=== PATIENT | female | born 1945 | race Hispanic/Latino ===

== ENCOUNTER → 2017-10-22 | Outpatient (CLI) | payer MEDICARE, OTHER ==
[~2017-10-22] MED LIST: CELEBREX100 MG PO; CYCLOBENZAPRINE5 MG PO; GABAPENTIN300 MG PO; HYDROCHLOROTHIA25 MG PO; LEVAQUIN500 MG PO; LEXAPRO10 MG PO; LISINOPRIL10 MG PO; METOCLOPRAMIDE10 MG PO; METRONIDAZOLE500 MG PO; PANTOPRAZOLE SO40 MG PO; POTASSIUM CHLO10 ME1 PO; PROMETHAZINE HC25 M1 PO; TRAMADOL-ACETAMI1 EA PO; ULTRAM50 MG PO; VALTREX500 MG PO; lantus solostar SQ; novolog flexpen SQ
--- NOTE | 2017-10-28 08:52 | Diagnostic Imaging Report ---
#[id number] - MGSCRBIL #BILATERAL DIGITAL SCREENING MAMMOGRAM WITH CAD: 10/22/2017 Comparison is made to exam dated: 11/07/2016 mammogram - [facility]. Current study contains 5 films. There are scattered fibroglandular elements in both breasts. Current study was also evaluated with a Computer Aided Detection (CAD) system. There are benign calcifications in both breasts. There also are post operative findings in the right breast with multiple clips, scarring and retraction from a prior lumpectomy. No significant masses, calcifications, or other findings are seen in either breast. There has been no significant interval change. IMPRESSION: BENIGN There is no mammographic evidence of malignancy. A 1 year screening mammogram is recommended. The patient will be notified by letter of the results. Laurent Urrutia Jr., D.O. cw/:10/27/2017 08:45:27 Work Adjustment Instructor: Sigrid ALVAREZ)(Bernard), [facility] letter sent: Compared to Prior B9 Mammogram BI-RADS: 2 Benign
== END ==
LOC: MAMMO 08:58
PROVIDERS: ATTEND Student in an Organized Health Care Education/Training Program
DX: Z12.31 Encounter for screening mammogram for malignant neoplasm of breast (principal)
CPT/HCPCS: 77067

== ENCOUNTER 2018-07-25 10:01 | Emergency (ER) | payer MEDICARE, OTHER ==
[~2018-07-25] VITALS: Ht 160 cm; Wt 108.9 kg
[~2018-07-25 10:01] MED LIST changes: +ALPRAZOLAM0.5 MG PO; +CATAPRES0.2 MG PO; +HUMALOG100 UNIT/1 SQ; +LACTULOSE20 GM/30 M PO; +TYLENOL # 31 EA PO; +ZOFRAN ODT4 MG PO
[2018-07-25] MEDS ORDERED: FAMOTIDINE 20 MG/2 ML VIAL IV STA (10:46)
[2018-07-25] MEDS ORDERED: ONDANSETRON HCL INJ 2 MG/ML VIAL IV STA (10:46)
[2018-07-25] MEDS ORDERED: KETOROLAC TROMETHAMINE 30 MG/ML VIAL IV STA (10:46)
--- NOTE | 2018-07-25 11:47 | Diagnostic Imaging Report ---
EXAMINATION: PA and lateral views of the chest. COMPARISON: None CLINICAL HISTORY: Chest pain DISCUSSION: Lines/tubes: None. Lungs: The lungs are well inflated and clear. There is no evidence of pneumonia or pulmonary edema. Pleura: There is no pleural effusion or pneumothorax. Heart and mediastinum: Cardiomediastinal silhouette is unremarkable. Pulmonary vasculature is normal. Tortuous aorta. Bones and soft tissues: No acute bony abnormalities. Degenerative changes in the thoracic spine. Metallic clips project over the right hemithorax. IMPRESSION: No acute cardiopulmonary abnormalities. Signed by: Dr. Rubin Baugh M.D. on 07/25/2018 11:44 AM
--- NOTE | 2018-07-25 12:03 | Diagnostic Imaging Report ---
EXAMINATION: CT of the abdomen and pelvis without contrast. TECHNIQUE: Spiral CT images of the abdomen and pelvis were performed from the lung bases to the lesser trochanters. No intravenous contrast was given per renal stone protocol. Coronal and sagittal reformatted images were obtained. COMPARISON: CT abdomen and pelvis with contrast 02/01/2020 CLINICAL HISTORY:Abdominal pain DISCUSSION: ABSENCE OF INTRAVENOUS CONTRAST DECREASES SENSITIVITY FOR DETECTION OF FOCAL LESIONS AND VASCULAR PATHOLOGY. ABDOMEN/PELVIS: LOWER THORAX: 3-4 mm perifissural nodule in the left major fissure (series 2, image 1). Lung bases are otherwise clear. Atherosclerotic calcification of the coronary arteries HEPATOBILIARY: Diffuse hepatic steatosis. No focal lesions. No intra or extrahepatic biliary ductal dilation. GALLBLADDER: No radio-opaque stones or sludge. No wall thickening. SPLEEN: No splenomegaly. PANCREAS: No focal masses or ductal dilatation. ADRENALS: Stable 2.5 x 2.2 cm hypodense lesion in the left adrenal gland, with a measured density of less than 10 HU on this noncontrast exam. Right adrenal gland is unremarkable. KIDNEYS/URETERS: No renal or ureteral calculi, hydronephrosis or obstruction. Metallic clips and contour abnormality in the inferior portion of the right kidney, likely from partial nephrectomy. PELVIC ORGANS/BLADDER: Uterus is nonvisualized. No adnexal masses. PERITONEUM/RETROPERITONEUM: No free air or fluid. LYMPH NODES: No intra-abdominal,retroperitoneal, pelvic or inguinal lymphadenopathy. VESSELS: Atherosclerotic calcification of the abdominal aorta and iliac vessels. GI TRACT: No bowel dilation or evidence of obstruction. Sigmoid colon diverticulosis, without diverticulitis. BONES AND SOFT TISSUES: No aggressive lytic lesions. Degenerative disc changes predominantly at L5-S1. Soft tissues are grossly unremarkable. IMPRESSION: 1. Exam limited by lack of intravenous contrast. No bowel dilation or evidence of obstruction. 2. No renal, ureteral or bladder calculi. 3. Stable 2.5 cm benign, lipid rich left adrenal adenoma. No further diagnostic or follow-up imaging is indicated. 4. Diffuse hepatic stenosis. Signed by: Dr. Rubin Baugh M.D. on 07/25/2018 11:59 AM
[2018-08-02] MEDS ORDERED: LOSARTAN POTAS100 MG PO (15:44)
[2018-08-02] MEDS ORDERED: CYMBALTA30 MG PO (15:44)
[2018-08-02] MEDS ORDERED: JANUVIA100 MG PO (15:45)
[2018-08-02] MEDS ORDERED: LANTUS 3ML100 UNITS/ SC (15:45)
[2018-08-02] MEDS ORDERED: DETROL LA4 MG PO (15:45)
[2018-08-02] MEDS ORDERED: SYMBICORT 80-10.2 GM INH (15:45)
[2018-08-02] MEDS ORDERED: HYDROXYZINE HCL25 MG PO (15:45)
[2018-08-02] MEDS ORDERED: OMEPRAZOLE40 MG PO (15:46)
[2018-08-02] MEDS ORDERED: HUMALOG100 UNIT/3 SC (15:46)
[2018-08-02] MEDS ORDERED: LEXAPRO10 MG PO (15:46)
== END 2018-07-25 14:00 | disposition home or self-care (01) ==
LOC: FSED 10:01
DX: R10.84 Generalized abdominal pain (principal); R11.0 Nausea; I10 Essential (primary) hypertension; E11.9 Type 2 diabetes mellitus without complications; Z85.3 Personal history of malignant neoplasm of breast; F17.210 Nicotine dependence, cigarettes, uncomplicated
CPT/HCPCS: 71046; 74176; 80048; 81003; 84484; 85025; 93005; 99284; J1885; J2405

== ENCOUNTER 2018-07-28 09:36 | Emergency (ER) | payer MEDICARE ==
[~2018-07-28] VITALS: Ht 160 cm; Wt 108.9 kg
[2018-07-28] MEDS ORDERED: DULCOLAX STOOL100 MG PO (10:57)
[2018-08-02] MEDS ORDERED: CYMBALTA30 MG PO (15:44)
[2018-08-02] MEDS ORDERED: LOSARTAN POTAS100 MG PO (15:44)
[2018-08-02] MEDS ORDERED: LANTUS 3ML100 UNITS/ SC (15:45)
[2018-08-02] MEDS ORDERED: JANUVIA100 MG PO (15:45)
[2018-08-02] MEDS ORDERED: SYMBICORT 80-10.2 GM INH (15:45)
[2018-08-02] MEDS ORDERED: DETROL LA4 MG PO (15:45)
[2018-08-02] MEDS ORDERED: HYDROXYZINE HCL25 MG PO (15:45)
[2018-08-02] MEDS ORDERED: LEXAPRO10 MG PO (15:46)
[2018-08-02] MEDS ORDERED: HUMALOG100 UNIT/3 SC (15:46)
[2018-08-02] MEDS ORDERED: OMEPRAZOLE40 MG PO (15:46)
== END 2018-07-28 10:43 | disposition home or self-care (01) ==
LOC: FSED 09:36
DX: R10.84 Generalized abdominal pain (principal); I10 Essential (primary) hypertension; E11.9 Type 2 diabetes mellitus without complications; E78.5 Hyperlipidemia, unspecified; Z85.3 Personal history of malignant neoplasm of breast
CPT/HCPCS: 99282

== ENCOUNTER → 2018-08-11 | Day surgery (SDC) | payer MEDICARE, OTHER ==
[2018-08-02 16:09] LABS: BASOPHILS # (AUTO) 0.1 (0.0-0.1); BASOPHILS % 0.6 % (0.0-1.0); EOSINOPHILS # (AUTO) 0.3 (0.0-0.4); EOSINOPHILS % 2.7 % (0.0-6.0); HEMATOCRIT 41.9 % (34.2-44.1); LYMPHOCYTES # (AUTO) 1.8 (1.0-3.2); LYMPHOCYTES % 18.9 % (18.0-39.1); MEAN CORPUSCULAR HEMOGLOBIN 25.6 pg (28-32); MEAN CORPUSCULAR VOLUME 82.6 fL (81-99); MONOCYTES # (AUTO) 0.8 (0.2-0.8); MONOCYTES % 8.9 % (4.4-11.3); NEUTROPHILS # (AUTO) 6.4 (2.1-6.9); NEUTROPHILS % 68.6 % (38.7-80.0); PLATELET COUNT 199 x10e3/uL (140-360); RED BLOOD COUNT 5.07 x10e6/uL (3.6-5.1); RED CELL DISTRIBUTION WIDTH 15.2 % (11.7-14.4)
[~2018-08-11] MED LIST changes: +B/P MEDICATION PO; +CYMBALTA30 MG PO; +DETROL LA4 MG PO; +DULCOLAX STOOL100 MG PO; +FENTANYL CITRATE/PF 100MCG/2 ML INJ ONE; +HUMALOG100 UNIT/3 SC; +HYDROXYZINE HCL25 MG PO; +JANUVIA100 MG PO; +LANTUS 3ML100 UNITS/ SC; +LOSARTAN POTAS100 MG PO; +MIDAZOLAM HCL 2 MG/2 ML VIAL ONE; +OMEPRAZOLE40 MG PO; +PROPOFOL IV EMULSION 10 MG/ML 50 ML VIAL ONE; +SYMBICORT 80-10.2 GM INH
[2018-08-11 09:15] VITALS: BP 149/90
--- NOTE | 2018-08-11 13:29 | Operative Report ---
DATE OF PROCEDURE: August 11, 2018 REFERRING PHYSICIAN: Wilver Subramanian MD PROCEDURE PERFORMED: Esophagogastroduodenoscopy with biopsies and esophageal dilatation. INDICATIONS FOR PROCEDURE: Dysphagia, nausea. MEDICATION: Patient was done under MAC. Please see anesthesiologist's note. PROCEDURE: With the patient in the left lateral decubitus position, the flexible fiberoptic Olympus gastroscope was introduced into the esophagus under direct visualization without any difficulty. There was some patchy erythema noted in the distal esophagus. A minute tongue of velvety red mucosa was noted to extend proximally from the GE junction. That was biopsied to rule out Roach's. There was a mild stricture noted at the GE junction that was dilated to size 52-Kyr[place] Morales. The scope was then advanced with ease into the stomach, traversing a small sliding hiatal hernia. Mucosa overlying the antrum and the body revealed some patchy erythema and mild to moderate edema, and biopsies were obtained and sent to stain for H. pylori. The pylorus was of normal contour and shape. It was intubated with ease, and the scope was advanced all the way to the 2nd portion of the duodenum. The scope was then withdrawn slowly. Mucosa overlying the proximal 2nd portion appeared to be within normal limits. A minute nodule was noted in the duodenal bulb along the posterior wall that was biopsied. The scope was then withdrawn back into the stomach and retroflexed, and the mucosa overlying the fundus and the cardia appeared to be within normal limits. The scope was then straightened out. It was subsequently withdrawn. Patient tolerated the procedure well. IMPRESSION 1. Distal esophagitis, mild. 2. Rule out Roach's esophagus. 3. Mild stricture at gastroesophageal junction dilated to size 52-Kyr[place] Morales. 4. Small sliding hiatal hernia. 5. Gastritis, biopsied. Biopsies sent to stain for H. pylori. 6. Duodenal bulb nodule, biopsied. PLAN: Follow up histology. Increase omeprazole to 40 mg 1 p.o. a.c. b.i.d. Job#: [id number] cc:WILVER SUBRAMANIAN MD
== END | disposition home or self-care (01) ==
LOC: OR 05:33
PROVIDERS: ATTEND Internal Medicine Gastroenterology
DX: K22.2 Esophageal obstruction (principal); K29.50 Unspecified chronic gastritis without bleeding; K44.9 Diaphragmatic hernia without obstruction or gangrene; K21.0 Gastro-esophageal reflux disease with esophagitis; K58.9 Irritable bowel syndrome, unspecified; K59.00 Constipation, unspecified; J44.9 Chronic obstructive pulmonary disease, unspecified; G47.33 Obstructive sleep apnea (adult) (pediatric); I10 Essential (primary) hypertension; E11.9 Type 2 diabetes mellitus without complications; K76.0 Fatty (change of) liver, not elsewhere classified; E66.01 Morbid (severe) obesity due to excess calories; M19.90 Unspecified osteoarthritis, unspecified site; F41.9 Anxiety disorder, unspecified; F32.9 Major depressive disorder, single episode, unspecified; F17.210 Nicotine dependence, cigarettes, uncomplicated; Z01.810 Encounter for preprocedural cardiovascular examination; Z01.812 Encounter for preprocedural laboratory examination; Z79.4 Long term (current) use of insulin; Z68.41 Body mass index [BMI] 40.0-44.9, adult; Z85.3 Personal history of malignant neoplasm of breast
CPT/HCPCS: 36415 ×2; 43239; 43450; 82948; 85025; 93005; J2250; J2704

== ENCOUNTER → 2018-09-22 | Outpatient (CLI) | payer MEDICARE, OTHER ==
[~2018-09-22] MED LIST changes: -FENTANYL CITRATE/PF 100MCG/2 ML INJ ONE; +GADOBENATE DIMEGLUMINE 1 ML IV ONE; -MIDAZOLAM HCL 2 MG/2 ML VIAL ONE; -PROPOFOL IV EMULSION 10 MG/ML 50 ML VIAL ONE
[2018-09-22 10:57] LABS: CREATININE, SERUM 0.97 mg/dL (0.57-1.11)
--- NOTE | 2018-09-22 12:30 | Diagnostic Imaging Report ---
MRI BRAIN WOW HISTORY: Vertigo, diplopia COMPARISON: MRI of the brain 02/01/2018 TECHNIQUE: Multiplanar, multisequence MRI of the brain (including diffusion-weighted imaging) was performed before and after the administration of intravenous, gadolinium based contrast. 20 mL of MultiHance were administered. Motion artifacts obscure some details. DISCUSSION: Scalp/bone marrow: Unremarkable. Brain sulci: Appropriate for patient's age. Ventricles: Normal in size and configuration. No hydrocephalus. Extra-axial spaces: No masses or fluid collections. Parenchyma: Scattered T2/FLAIR hyperintense foci throughout the supratentorial white matter are likely chronic microvascular ischemic changes. Otherwise, no mass, hemorrhage, or acute vascular insults. No abnormal parenchymal, leptomeningeal, or dural enhancement is seen. Vessels: Normal flow voids in major arteries and veins. Sellar/Suprasellar region: No abnormalities. Craniocervical junction: No abnormalities. Incidental findings: None. IMPRESSION: 1. No acute intracranial abnormalities. 2. Moderate supratentorial chronic microvascular ischemic change. Signed by: Dr. Delmar Carroll M.D. on 09/22/2018 12:26 PM
== END ==
LOC: MRI 10:03
PROVIDERS: ATTEND Otolaryngology
DX: R42 Dizziness and giddiness (principal); H53.2 Diplopia
CPT/HCPCS: 36415; 70553; 82565; 84520; A9577

== ENCOUNTER 2018-10-18 13:06 | Emergency (ER) | payer OTHER, MEDICARE ==
[~2018-10-18] VITALS: Ht 160 cm; Wt 108.9 kg
[~2018-10-18 13:06] MED LIST changes: -GADOBENATE DIMEGLUMINE 1 ML IV ONE
[2018-10-18] MEDS ORDERED: CRESTOR10 MG (13:38)
[2018-10-18] MEDS ORDERED: BENTYL10 MG/1 ML PO (13:38)
[2018-10-18] MEDS ORDERED: LOSARTAN POTASS25 MG (13:38)
[2018-10-18] MEDS ORDERED: JANUVIA50 MG (13:38)
[2018-10-18] MEDS ORDERED: HUMALOG100 UNIT/1 SQ (13:38)
--- NOTE | 2018-10-18 13:59 | Diagnostic Imaging Report ---
Radiographs of the right elbow - 3 views HISTORY: Fall. Pain. COMPARISON: 10/18/2018 FINDINGS: Bones: Nondisplaced intra-articular radial head fracture Osseous alignment is within normal limits. Joints: The joint spaces are well-maintained. Soft tissues: Soft tissue swelling and elbow joint effusion. IMPRESSION: Nondisplaced intra-articular radial head fracture with soft tissue swelling and elbow joint effusion Signed by: Dr. Ricky Kirby M.D. on 10/18/2018 1:56 PM
[2018-10-18 14:30] VITALS: BP 155/82
== END 2018-10-18 14:40 | disposition home or self-care (01) ==
LOC: FSED 13:06
DX: S52.125A Nondisplaced fracture of head of left radius, initial encounter for closed fracture (principal); W01.0XXA Fall on same level from slipping, tripping and stumbling without subsequent striking against object, initial encounter; Y92.008 Other place in unspecified non-institutional (private) residence as the place of occurrence of the external cause; I10 Essential (primary) hypertension; E11.9 Type 2 diabetes mellitus without complications; Z85.3 Personal history of malignant neoplasm of breast
CPT/HCPCS: 99284

== ENCOUNTER 2018-10-23 13:41 | Emergency (ER) | payer MEDICARE, OTHER ==
[~2018-10-23] VITALS: Ht 160 cm; Wt 108.9 kg
[~2018-10-23 13:41] MED LIST changes: +BENTYL10 MG/1 ML PO; +CRESTOR10 MG; +JANUVIA50 MG; +LOSARTAN POTASS25 MG
--- NOTE | 2018-10-26 11:09 | NUR ---
ATTEMPTED TO CALL SISTER OBIE MATT [phone] PHONE WAS BUSY 3 TIMES. UNABLE TO MOVE FORWARD. DUE TO HAVING A COMMUNICATION AND NOT AN ORDER UNABLE TO PROCEED AND NOT ABLE TO REACH FAMILY TO ENCOURAGE TO RETURN TO PCP FOR FOLLOW UP.
== END 2018-10-23 14:15 | disposition home or self-care (01) ==
LOC: FSED 13:41
DX: Z47.89 Encounter for other orthopedic aftercare (principal)
CPT/HCPCS: 99284

== ENCOUNTER 2019-01-12 14:45 | Observation (INO) | payer MEDICARE, OTHER ==
[~2019-01-12] VITALS: Ht 160 cm; Wt 111.2 kg
[2019-01-12] MEDS ORDERED: ASPIRIN 81 MG CHEW TAB PO STA (15:05)
[2019-01-12] MEDS ORDERED: ONDANSETRON HCL 4 MG ORAL DISINTEGRATING TAB PO STA (15:05)
[2019-01-12] MEDS ORDERED: MECLIZINE HCL 12.5 MG TAB PO ONE (15:15)
[2019-01-12] MEDS ORDERED: ONDANSETRON HCL INJ 2MG/ML 2ML 2 MG/ML VIAL IV STA (15:23)
[2019-01-12] MEDS ORDERED: MECLIZINE HCL 12.5 MG TAB ONE (15:31)
[2019-01-12] MEDS ORDERED: ASPIRIN 81 MG CHEW TAB ONE (15:31)
[2019-01-12] MEDS ORDERED: INSULIN REGULAR, HUMAN 100 UNIT/1 ML 3ML VIAL SQ STA (15:34)
--- NOTE | 2019-01-12 15:49 | Diagnostic Imaging Report ---
EXAMINATION: Head CT HISTORY: Dizziness, head pain COMPARISON: Brain MRI 09/22/2018 TECHNIQUE: Multidetector axial images were obtained without contrast from the foramen magnum to the vertex . The images were reconstructed using brain and bone algorithms. Thin section brain images were reformatted into coronal and sagittal planes. Image quality: Motion/streaking artifact limits the evaluation of the skull base and posterior cranial fossa. Dose modulation, iterative reconstruction, and/or weight based adjustment of the mA/kV was utilized to reduce the radiation dose to as low as reasonably achievable. FINDINGS: Parenchyma: 1. Persistent mild to moderate supratentorial white matter chronic microvascular ischemic changes. 2. No mass or hemorrhage. No CT evidence of acute territorial vascular insult. Extra-axial spaces:No abnormal density. No extra-axial fluid collections Brain volume: Normal for age. Ventricles: No hydrocephalus or displacement. Arteries: No density suggestive of thrombus. Dural sinuses: No abnormal density. Extra-axial spaces: No abnormal density. Foramen magnum: No mass, Chiari malformation, or basilar invagination. Sella: No obvious mass. Paranasal/mastoid sinuses: Imaged portions unremarkable. Skull/Scalp: No lytic or blastic lesions. No fractures. IMPRESSION: 1. No acute intracranial abnormalities. 2. Moderate chronic microvascular ischemic changes, unchanged compared to MRI of 09/22/2018. Signed by: Dr. Valentina Panchal M.D. on 01/12/2019 3:45 PM
[2019-01-12] MEDS ORDERED: DEXTROSE 50% SYRINGE 50 ML IV PRN (16:00)
[2019-01-12] MEDS: INSULIN REGULAR, HUMAN 100 UNIT/1 ML 3ML VIAL SQ SCH ×2 (16:02→21:50)
[2019-01-12] MEDS ORDERED: INSULIN REGULAR, HUMAN 100 UNIT/1 ML 3ML VIAL ONE (16:07)
[2019-01-12] MEDS ORDERED: CLONIDINE HCL 0.1 MG TAB PO STA (16:16)
--- NOTE | 2019-01-12 16:16 | Diagnostic Imaging Report ---
EXAM: CT Abdomen and Pelvis WITHOUT intravenous contrast INDICATION: Abdominal pain COMPARISON: None. TECHNIQUE: Abdomen and pelvis were scanned utilizing a multidetector helical scanner from the lung base to the pubic symphysis without administration of IV contrast. Coronal and sagittal reformations were obtained. Routine protocol was performed. Scan was performed when during portal venous phase. IV CONTRAST: None ORAL CONTRAST: None COMPLICATIONS: None RADIATION DOSE: Total DLP: 756.74 mGy*cm Dose modulation, iterative reconstruction, and/or weight based adjustment of the mA/kV was utilized to reduce the radiation dose to as low as reasonably achievable. FINDINGS: LOWER THORAX: Normal. HEPATOBILIARY: Diffuse hepatic steatosis. No focal liver lesions. No biliary ductal dilatation. SPLEEN: No splenomegaly. PANCREAS: No focal masses or ductal dilatation. ADRENALS: Stable 2.5 cm left adrenal adenoma. KIDNEYS/URETERS: Postoperative changes with surgical clips at the right kidney lower pole. No hydronephrosis or renal calculi. PELVIC ORGANS/BLADDER: Status post hysterectomy. Decompressed bladder. PERITONEUM / RETROPERITONEUM: No free air or fluid. LYMPH NODES: No lymphadenopathy. VESSELS: Scattered atherosclerotic calcifications of the abdominal aorta and major branches. GI TRACT: Colonic diverticulosis with no CT evidence of diverticulitis. No abnormal bowel wall thickening or bowel distention. Normal appendix. BONES AND SOFT TISSUES: No fracture or dislocation. Minimal degenerative changes of the visualized spine. No suspicious lytic or blastic lesions. IMPRESSION: No acute findings in the abdomen or pelvis. Stable left adrenal adenoma. Hepatic steatosis. Signed by: Lisandro Zepeda MD on 01/12/2019 4:13 PM
[2019-01-12] MEDS ORDERED: CLONIDINE HCL 0.1 MG TAB ONE (16:20)
[2019-01-12] MEDS ORDERED: AMLODIPINE BESYLATE 5 MG TAB PO STA (16:20)
[2019-01-12] MEDS ORDERED: SODIUM CHLORIDE FLUSH 10 ML SYR INJ PRN (16:45)
[2019-01-12] MEDS ORDERED: ASPIRIN 81 MG CHEW TAB PO ONE (16:45)
[2019-01-12] MEDS ORDERED: NITROGLYCERIN 0.4 MG SUBL SL PRN (16:45)
--- NOTE | 2019-01-12 16:45 | Diagnostic Imaging Report ---
EXAMINATION: CXR 2 VIEW - HOPD INDICATION: Shortness of breath COMPARISON: Chest radiograph of 07/25/2018 FINDINGS: TUBES and LINES: None. LUNGS: The lung volumes are normal. No focal consolidation or pulmonary edema. PLEURA: No pleural effusion or pneumothorax. HEART AND MEDIASTINUM: The cardiomediastinal silhouette is normal in size and contour. BONES AND SOFT TISSUES: No acute fracture or dislocation. UPPER ABDOMEN: No free air under the diaphragm. IMPRESSION: No focal pneumonia or pulmonary edema. Signed by: Lisandro Zepeda MD on 01/12/2019 4:41 PM
[2019-01-12] MEDS ORDERED: MAGNESIUM/ALUMINUM/SIMETHICONE 30 ML UDC PO STA (16:46)
[2019-01-12] MEDS ORDERED: HYDRALAZINE HCL 20 MG/ML VIAL IV STA (17:05)
--- NOTE | 2019-01-12 17:20 | NUR ---
patient arrived to unit via stretcher, alert and oriented and in no distress. call collins within reach and bed in lowest position.
[2019-01-12 17:34] VITALS: BP 156/91
[2019-01-12] MEDS: ONDANSETRON HCL INJ 2MG/ML 2ML 2 MG/ML VIAL IV PRN ×2 (18:17→21:50)
--- NOTE | 2019-01-12 18:55 | NUR ---
patient alert and oriented. call collins within reach and bed in lowest position. blood pressure reading is 192/100 with a pulse of 100, Roger notified, due to patient receiving hydralazine at 1730, per MD give medication time to work. will continue to monitor.
[2019-01-12 19:00] VITALS: BP 186/73
[2019-01-12] MEDS ORDERED: HYDRALAZINE HCL 20 MG/ML VIAL IV PRN (19:00)
[2019-01-12] MEDS: ACETAMINOPHEN 325 MG TAB PO PRN (19:54)
--- NOTE | 2019-01-12 19:55 | NUR ---
PATIENT C/O HEADACHE AND NAUSEA, MEDICATED WITH TYLENOL ORDERED. HEAD OF BED ELEVATED, NO RESPIRATORY DISTRESS OBSERVED. CALL LIGHT WITHIN EASY REACH, WILL REASSESS FOR EFFECTIVENESS OF THE MEDICATION.
[2019-01-12] MEDS ORDERED: INSULIN GLARGINE SC SCH (21:00)
[2019-01-12] MEDS ORDERED: INSULIN GLARGINE 100 UNITS/ML VIAL SQ SCH (21:00)
[2019-01-12] MEDS: HYDROXYZINE HCL 25 MG TAB PO SCH (21:50)
--- NOTE | 2019-01-12 22:05 | NUR ---
PATIENT VOMITED MODERATE AMOUNT OF EMESIS, KEPT CLEAN AND DRY, ASSISTED WITH ADLS. SHE WAS MEDICATED WITH ZOFRAN FOR NAUSEA EARLIER.
--- NOTE | 2019-01-12 23:40 | NUR ---
PATIENT RESTING IN BED, NO RESPIRATORY DISTRESS OBSERVED AND SHE DENIES PAIN. NO DRAINAGE NOTED FROM THE RECTAL ABSCESS STATED BY THE PATIENT, SHE'S INSTRUCTED TO CALL FOR ASSISTANCE NEEDED. Addendum: 01/13/19 at 0126 by Mariya Muir RN WRONG PATIENT
--- NOTE | 2019-01-13 01:01 | Consultation ---
DATE OF CONSULTATION: 01/12/2019 REASON FOR CONSULTATION: Dizziness, weakness, vertigo, vague chest pain. HISTORY: A 73-year-old lady, who has known obesity, hypertension, diabetes mellitus, fibromyalgia, and degenerative joint disease. The patient was in her usual status of health. Since yesterday morning, she is feeling "goofy." She was nauseated. She is having vertigo. She cannot move her head without spinning because of pain around. Today, she was very ill with nausea, vomiting, abdominal pain. She does have severe headache. The patient vomited several times and she is very weak. She cannot sit or move without feeling dizzy and almost going to pass out. The patient also complained of chest pain, very vague, but it is more over the left breast and lower retrosternal area, but it is more pronounced in her abdominal area. Her blood pressure was severely elevated with diastolic of 100. The patient's first set of cardiac enzyme is normal. Her CT head showed no acute changes. Her chest x-ray showed no acute abnormality. She had abdomen and pelvis CT, which showed the presence of diverticulosis and left adrenal adenoma and hepatic steatosis. REVIEW OF SYSTEMS: GENERAL: Weakness. No fever. No chills. Poor exercise tolerance. No weight loss. No weight gain. HEENT: Remarkable for headache, lightheadedness, vertigo. PULMONARY: No pleuritic chest pain. Occasional cough. No hemoptysis. No wheezing. CARDIOVASCULAR: Easy fatigability. No syncope, very vague chest discomfort, which is after nausea, vomiting, and abdominal pain. Very dizzy. Usually, she does have moderate shortness of breath on exertion. No syncope, but very dizzy and more of vertigo other than syncope like symptoms. GI: Nausea, vomiting, abdominal discomfort, and all symptoms exacerbated by the body movement and neck movement. HEMATOLOGY: No easy bruising or bleeding. : No hematuria. No dysuria. MUSCULOSKELETAL: Back pain, knee pain, stiffness. PERIPHERAL VASCULAR: No recent travel. No swelling of the lower extremities. SKIN: No rashes. NEUROLOGICAL: Severe vertigo like symptoms. Severe headache. No localized deficits. PAST MEDICAL HISTORY: 1. Hypertension. 2. Diabetes mellitus. 3. Depression. 4. Fibromyalgia. 5. History of asthma. 6. History of GERD and stricture, status post several dilatation. 7. History of right breast cancer. 8. Obstructive sleep apnea. 9. Hysterectomy. 10. . 11. Right breast biopsy and lumpectomy with lymph node dissection. 12. Appendectomy. 13. Lumbar spine surgery. 14. Right knee surgery. 15. Left knee surgery. SOCIAL HISTORY: She is single. She stopped smoking in 1997. She does not drink alcohol. FAMILY HISTORY: Father of myocardial infarction at age 70. Mother at age 42 with breast cancer. One brother with CHF. Three healthy sisters. HOME MEDICATIONS: Losartan 25 mg a day, Crestor 10 mg a day, Symbicort, ProAir, fluticasone, Lexapro, Januvia 100 mg a day, Lantus insulin 60 units every evening, Humalog 32 units t.i.d., Protonix 40 mg a day, Detrol 4 mg a day. ALLERGIES: METFORMIN, BACTRIM, JARDIANCE, CLINDAMYCIN. PHYSICAL EXAMINATION: GENERAL: Obese lady with height of 5 feet 1 inch, weight of 237 pounds. VITAL SIGNS: Blood pressure 200/100 in ER, currently is 160/90, respiratory rate of 18, heart rate of 70. HEENT: Pupils are reactive. NECK: No elevation of jugular venous pulsation. No bruit. CHEST: Clear to auscultation and percussion. HEART: PMI 5th left intercostal space. Normal first and second heart sounds. ABDOMEN: Soft with good bowel sounds. EXTREMITIES: No cyanosis, no clubbing, no edema. No signs of deep venous thrombosis. Good distal pulses. NEUROLOGIC: She is awake and alert. There is no focal deficit with movement of her head. The patient does have severe dizziness and syncope like symptoms. IMPRESSION AND PLAN: 1. Vertigo. 2. Hypertension. 3. Nausea and vomiting, most likely related to her vertigo and headache symptoms. 4. Diabetes mellitus with complication. 5. Vague chest pain. Cardiac croft, my recommendation is just observation, treating her hypertension, keeping the patient on telemetry. We will adjust her blood pressure medication. We will follow the patient's progression with you. MD SILVIANO Mckee/NATA /[id number]
[2019-01-13 01:17] VITALS: BP 116/72
--- NOTE | 2019-01-13 03:35 | NUR ---
WALKING ROUNDS MADE, PATIENT OBSERVED SOUNDLY ASLEEP WITHOUT RESPIRATORY DISTRESS. BED ALARM ON, CALL LIGHT WITHIN EASY REACH.
[2019-01-13 04:00] VITALS: BP 142/64
[2019-01-13 05:03] LABS: BASOPHILS % 0.5 % (0.0-1.0); EOSINOPHILS # (AUTO) 0.1 (0.0-0.4); EOSINOPHILS % 1.6 % (0.0-6.0); HEMATOCRIT 40.5 % (34.2-44.1); HEMOGLOBIN 12.9 g/dL (12.0-16.0); LYMPHOCYTES # (AUTO) 1.3 (1.0-3.2); LYMPHOCYTES % 16.4 % (18.0-39.1); MEAN CORPUSCULAR HEMOGLOBIN 26.2 pg (28-32); MEAN CORPUSCULAR HGB CONC 31.9 g/dL (31-35); MEAN CORPUSCULAR VOLUME 82.2 fL (81-99); MONOCYTES # (AUTO) 0.6 (0.2-0.8); MONOCYTES % 6.7 % (4.4-11.3); NEUTROPHILS # (AUTO) 6.1 (2.1-6.9); NEUTROPHILS % 74.3 % (38.7-80.0); PLATELET COUNT 182 x10e3/uL (140-360); RED BLOOD COUNT 4.93 x10e6/uL (3.6-5.1); RED CELL DISTRIBUTION WIDTH 15.7 % (11.7-14.4)
[2019-01-13 05:22] LABS: ANION GAP 14.2 mmol/L (8-16); CALCIUM 9.7 mg/dL (8.4-10.2); CHOL/HDL RATIO 2.4 (3.0-3.6); CREATININE, SERUM 0.95 mg/dL (0.57-1.11); POTASSIUM 4.2 mmol/L (3.5-5.1)
[2019-01-13 05:25] LABS: B-TYPE NATRIURETIC PEPTIDE2 12.2 pg/mL (0-100)
[2019-01-13 05:45] LABS: ALBUMIN 3.5 g/dL (3.5-5.0); BILIRUBIN,DIRECT 0.2 mg/dL (0.0-0.5)
[2019-01-13 05:47] LABS: FREE T4 (FREE THYROXINE) 0.44 ng/dL (0.8-1.8); THYROID STIMULATING HORMONE 19.995 uIU/mL (0.350-4.940)
[2019-01-13] MEDS: HYDROXYZINE HCL 25 MG TAB PO SCH ×2 (06:09→13:21)
[2019-01-13] MEDS: ONDANSETRON HCL INJ 2MG/ML 2ML 2 MG/ML VIAL IV PRN (06:09)
[2019-01-13] MEDS: ACETAMINOPHEN 325 MG TAB PO PRN (06:10)
--- NOTE | 2019-01-13 06:11 | NUR ---
PATIENT C/O HEADACHE AND NAUSEA, MEDICATED WITH ZOFRAN AND TYLENOL ORDERED. CALL LIGHT WITHIN EASY REACH, ASSISTED WITH ADLS.
[2019-01-13 06:50] LABS: CREATINE KINASE MB 1.9 ng/mL (0-5.0)
[2019-01-13] MEDS ORDERED: PANTOPRAZOLE SOD 40 MG TABEC PO SCH (07:30)
[2019-01-13] MEDS: INSULIN LISPRO 100 UNIT/1 ML 3ML VIAL SQ SCH ×4 (07:30→16:30)
[2019-01-13] MEDS ORDERED: MECLIZINE HCL 12.5 MG TAB PO PRN (07:45)
[2019-01-13] MEDS ORDERED: Meclizine Hcl PO (07:51)
[2019-01-13] MEDS ORDERED: LEVOTHYROXINE25 MCG PO (07:51)
[2019-01-13] MEDS ORDERED: ASPIRIN EC81 MG PO (07:51)
[2019-01-13] MEDS ORDERED: COZAAR100 MG PO (07:51)
[2019-01-13] MEDS ORDERED: PANTOPRAZOLE SO40 MG PO (07:53)
[2019-01-13 07:58] VITALS: BP 152/100
[2019-01-13] MEDS ORDERED: LEVOTHYROXINE SODIUM 25 MCG TABLET PO SCH (08:00)
[2019-01-13 08:20] VITALS: BP 150/100
[2019-01-13] MEDS: FAMOTIDINE 20 MG TAB PO SCH ×2 (08:20→16:41)
[2019-01-13] MEDS ORDERED: DULOXETINE HCL 30 MG DELAYED RELEASE PO SCH (09:00)
[2019-01-13] MEDS ORDERED: SITAGLIPTIN 100 MG TAB PO SCH (09:00)
[2019-01-13] MEDS ORDERED: LOSARTAN POTASSIUM 100 MG TAB PO SCH (09:00)
[2019-01-13] MEDS ORDERED: TOLTERODINE TARTRATE 4 MG CAPCR PO SCH (09:00)
[2019-01-13] MEDS ORDERED: ASPIRIN 81 MG ENTERIC COATED PO SCH (09:00)
[2019-01-13] MEDS ORDERED: ASPIRIN 325 MG TAB PO SCH (09:00)
[2019-01-13] MEDS ORDERED: INSULIN LISPRO SQ SCH (09:00)
--- NOTE | 2019-01-13 10:10 | NUR ---
okay to remove telemetry for patient to receive MRI, patient will be placed back on telemetry upon return to floor.
--- NOTE | 2019-01-13 10:20 | NUR ---
patient leaving unit alert and oriented, via wheelchair to MRI
--- NOTE | 2019-01-13 10:53 | NUR ---
patient arrived back to unit via wheelchair, alert and oriented. telemetry reapplied
[2019-01-13 12:00] VITALS: BP 136/67
--- NOTE | 2019-01-13 12:16 | Diagnostic Imaging Report ---
Examination: MRI BRAIN WITHOUT CONTRAST History: Nausea and dizziness for 3 days. Comparison studies: Head CT dated 01/12/2019 Technique: Sagittal T2; axial DWI, FLAIR, GRE or SWI, T1, Coronal FLAIR. Intravenous contrast: None Findings: Scalp: No abnormal signal. No masses. Bone marrow: Normal in signal intensity. Brain volume: Adequate for age. No volume loss. Ventricles: Normal in size and configuration. No hydrocephalus. Extra-axial spaces: No abnormalities. Parenchyma: There are patchy areas of T2/FLAIR hyperintensity in the periventricular and subcortical white matter, nonspecific. No masses, hemorrhage, acute or chronic vascular insults. Suprasellar and sellar region: No abnormalities. Craniocervical junction: No abnormalities. The foramen magnum is patent. No Chiari malformations. Vessels: Normal flow-voids in the arteries and sinuses. Additional findings:None. IMPRESSION: No acute intracranial abnormalities. Mild chronic microvascular ischemic change. Signed by: Dr. Mariam Garcia M.D. on 01/13/2019 12:13 PM
[2019-01-13 16:00] VITALS: BP 136/77
--- NOTE | 2019-01-13 18:47 | NUR ---
PATIENT DISCHARGE HOME- PATIENT OFF THE UNIT AT 1832 PER WHEELCHAIR ACCOMPANIED BY THE PCT TO THE FRONT LOBBY. PATIENT IS IN STABLE CONDITION WITH NO S/S OF RESPIRATORY DISTRESS. NO PAIN VOICED. IV REMOVED WITH TIP INTACT. DISCHARGE TEACHING, INSTRUCTIONS, AND MEDICATIONS GIVEN TO THE PATIENT. ALL PERSONAL ITEMS TAKEN WITH THE PATIENT.
--- NOTE | 2019-01-13 20:09 | Discharge Summary ---
ADMISSION DIAGNOSES: 1. Chest pain. 2. Hypertensive urgency. 3. Type 2 diabetes. 4. Dizziness. 5. Hypothyroidism. 6. Depression. DISCHARGE DIAGNOSES: 1. Chest pain. 2. Hypertensive urgency. 3. Type 2 diabetes. 4. Dizziness. 5. Hypothyroidism. 6. Depression. 7. Rule out ACS. 8. Rule out cerebrovascular accident. HISTORY: The patient has a history of hypertension, type 2 diabetes, depression, fibromyalgia, asthma, GERD with stricture status post dilatation, right breast cancer, HANANE, and degenerative joint disease. SURGICAL HISTORY: Hysterectomy, , right breast biopsy and lumpectomy, appendectomy, lumbar spine surgery, and right knee surgery. FAMILY HISTORY: The patient's dad had a heart attack. The patient's mom had cancer. The patient's brother had CHF. SOCIAL HISTORY: Noncontributory. HOSPITAL COURSE: A 73-year-old female, complains of left breast/substernal chest pain that began prior to admission. She had associated dizziness with nausea and a headache, moving made her dizziness increase. On arrival to the ER, her blood pressure was 198/105. Troponins were negative x3. EKG was normal sinus rhythm. The patient was started on aspirin. Chest x-ray was negative for edema. CT of the brain showed no acute abnormality. Due to complaints of abdominal pain, a CT of the abdomen and pelvis was done that showed no acute findings. Per Cardiology recommendation, they just want to observe her and treat her hypertension. The patient's MRI of the brain showed no abnormalities. Echo was 45-50% EF and a carotid Doppler showed no significant carotid stenosis. The patient is cleared to discharge per Cardiology. She will follow up with primary care in 1-2 weeks. Her blood pressure is now under control, so she will resume home medicines plus aspirin, meclozine, Protonix, losartan daily, and levothyroxine. The patient understands discharge instructions and agrees to plan. Vital signs stable. The patient is afebrile. Dictated by Kelsye Fontanez NP MD SHAHBAZ Faulkner/MODL /[id number]
== END 2019-01-13 18:34 | disposition home or self-care (01) ==
LOC: FSED 14:45 → ERHOLD 15:11 → IMCU 17:15
PROVIDERS: ADMIT Internal Medicine; ATTEND Internal Medicine
DX: R07.2 Precordial pain (principal); R42 Dizziness and giddiness; I16.0 Hypertensive urgency; R68.84 Jaw pain; I10 Essential (primary) hypertension; E78.5 Hyperlipidemia, unspecified; J44.9 Chronic obstructive pulmonary disease, unspecified; M79.7 Fibromyalgia; E11.8 Type 2 diabetes mellitus with unspecified complications; E03.9 Hypothyroidism, unspecified; F32.9 Major depressive disorder, single episode, unspecified; E66.9 Obesity, unspecified; M19.90 Unspecified osteoarthritis, unspecified site; Z68.41 Body mass index [BMI] 40.0-44.9, adult; F41.9 Anxiety disorder, unspecified; Z87.891 Personal history of nicotine dependence; R10.11 Right upper quadrant pain; Z88.1 Allergy status to other antibiotic agents; Z88.2 Allergy status to sulfonamides; Z88.8 Allergy status to other drugs, medicaments and biological substances; Z85.3 Personal history of malignant neoplasm of breast; Z82.49 Family history of ischemic heart disease and other diseases of the circulatory system; Z80.9 Family history of malignant neoplasm, unspecified; Z79.82 Long term (current) use of aspirin; Z79.4 Long term (current) use of insulin
CPT/HCPCS: 36415 ×2; 70450; 70551; 71046; 74176; 80048 ×2; 80053; 80061; 80076 ×2; 81003; 82150; 82550 ×2; 82553 ×2; 82948 ×2; 83036; 83690; 83735; 83880; 84439; 84443; 84484 ×2; 85025 ×2; 93005; 93306; 93880; 96372; 96376; 99284; G0378 ×2; J0360; J1815; J1817; J2405 ×2; J3410 ×2; J8597; Q0162; S0164; 96374

== ENCOUNTER → 2019-02-28 | Outpatient (CLI) | payer MEDICARE, OTHER ==
[~2019-02-28] MED LIST changes: +ASPIRIN EC81 MG PO; +COZAAR100 MG PO; +IOPAMIDOL 370 MG/ML 200 ML INFUS..BTL INJ ONE; +LEVOTHYROXINE25 MCG PO; +Meclizine Hcl PO; +SODIUM CHLORIDE 0.9% 500ML 500 ML ONE; +SODIUM CHLORIDE 0.9% 50ML 50 ML ONE
[2019-02-28 15:40] LABS: CREATININE, SERUM 0.95 mg/dL (0.57-1.11)
--- NOTE | 2019-02-28 17:18 | Diagnostic Imaging Report ---
CT of the chest, with contrast, 02/28/2019. History: Chest pain, dizziness. Comparison: CT abdomen 01/12/2019. Prior chest CT images are not available for comparison, but comparison is made with report from prior CT 11/07/2016. Technique: Multidetector CT scanning of the chest was performed from the level of the apices to the upper abdomen after intravenous administration of contrast. Coronal and sagittal multiplanar reformations were obtained. RADIATION DOSE: Total DLP: 614 mGy*cm Dose modulation, iterative reconstruction, and/or weight based adjustment of the mA/kV was utilized to reduce the radiation dose to as low as reasonably achievable. Discussion: Chest: The atria, ventricles, aorta, and main pulmonary artery are normal in size. The thyroid is unremarkable. Several mildly enlarged nodes are present within the mediastinum in paratracheal and bilateral hilar regions, ranging from 1.4-1.5 cm. A 1.3 cm centrally calcified granuloma is present in the medial aspect of the right upper lobe, described on prior CT report. There is no evidence of consolidation, mass, or pleural effusion. Limited evaluation of the upper abdomen shows a 2.2 cm low-density left adrenal adenoma. The right adrenal is normal. There is diffuse low-density of the liver. Bones and soft tissues: Degenerative changes are present throughout the thoracic spine. Multiple surgical clips are present in the right axilla and right breast. IMPRESSION: 1. Nonspecific mediastinal and hilar adenopathy. This was described on report from prior chest CT, which is not currently available for viewing. No acute pulmonary finding. 2. Stable left adrenal adenoma. Signed by: Sanju Dye on 02/28/2019 5:15 PM
== END ==
LOC: CT 15:05
PROVIDERS: ATTEND Internal Medicine Critical Care Medicine
DX: R91.1 Solitary pulmonary nodule (principal)
CPT/HCPCS: 36415; 71260; 82565; 84520; 96360; J7040; Q9967

== ENCOUNTER → 2019-05-10 | Outpatient (CLI) | payer MEDICARE, OTHER ==
[~2019-05-10] MED LIST changes: +CARVEDILOL3.125 MG PO; -IOPAMIDOL 370 MG/ML 200 ML INFUS..BTL INJ ONE; -SODIUM CHLORIDE 0.9% 500ML 500 ML ONE; -SODIUM CHLORIDE 0.9% 50ML 50 ML ONE
--- NOTE | 2019-05-10 13:12 | Diagnostic Imaging Report ---
EXAM: US ABDOMEN COMPLETE DATE: 05/10/2019 9:56 AM INDICATION: Abdominal pain COMPARISON: CT abdomen pelvis of 01/12/2019 TECHNIQUE: Transverse and longitudinal sears scale and color doppler sonographic images of the upper abdomen were obtained. FINDINGS: There is no evidence of fluid or masses seen in the area of clinical concern in the right lower quadrant. LIVER 18.7 cm in the right midclavicular line. Increased echogenicity of the liver with normal contour, no masses. SPLEEN 10.6 cm in maximum diameter. Normal echogenicity, no masses. GALLBLADDER No gallbladder wall thickening, distension, stone, or pericholecystic fluid. NEgative reported sonographic Silvestre's sign. Gallbladder wall measures 4 mm. BILE DUCTS No intra nor extra-hepatic biliary dilation. Common bile duct measures 4 mm PANCREAS: Visualized portions are normal. RIGHT KIDNEY: 10.9 cm Echogenicity: Normal Collecting System: No hydronephrosis Stones: None Cyst/Mass: None LEFT KIDNEY: 12.2 cm Echogenicity: Normal Collecting System: No hydronephrosis Stones: None Cyst/Mass: None VESSELS: Aorta: Visualized portions are within normal size limits Inferior Vena Cava: Visualized portions are normal Main Portal Vein: 0.9 cm, normal size with hepatopetal flow. FREE FLUID: None IMPRESSION: Hepatic steatosis and hepatomegaly. Signed by: Lisandro Zepeda MD on 05/10/2019 1:09 PM
--- NOTE | 2019-05-10 13:14 | Diagnostic Imaging Report ---
Exam: Pelvic ultrasound. History: Pelvic pain Comparison: CT abdomen and pelvis of 01/12/2019 Findings: Transabdominal sonographic evaluation of the pelvis. The patient is status post hysterectomy. The right and left ovaries are not visualized. No free fluid in the pelvis. No focal mass or fluid collection. Impression: Status post hysterectomy. No focal mass or fluid collection in the pelvis. Signed by: Lisandro Zepeda MD on 05/10/2019 1:10 PM
== END ==
LOC: US 09:45
PROVIDERS: ATTEND Internal Medicine Gastroenterology
DX: R10.9 Unspecified abdominal pain (principal); K76.0 Fatty (change of) liver, not elsewhere classified; R16.0 Hepatomegaly, not elsewhere classified
CPT/HCPCS: 76700; 76856

== ENCOUNTER → 2019-05-12 | Day surgery (SDC) | payer MEDICARE, OTHER ==
[2019-05-09 10:38] LABS: BASOPHILS % 0.5 % (0.0-1.0); EOSINOPHILS # (AUTO) 0.3 (0.0-0.4); EOSINOPHILS % 3.9 % (0.0-6.0); HEMATOCRIT 39.3 % (34.2-44.1); HEMOGLOBIN 12.3 g/dL (12.0-16.0); LYMPHOCYTES # (AUTO) 1.4 (1.0-3.2); LYMPHOCYTES % 16.4 % (18.0-39.1); MEAN CORPUSCULAR HEMOGLOBIN 27.1 pg (28-32); MEAN CORPUSCULAR HGB CONC 31.3 g/dL (31-35); MEAN CORPUSCULAR VOLUME 86.6 fL (81-99); MONOCYTES # (AUTO) 0.7 (0.2-0.8); MONOCYTES % 7.9 % (4.4-11.3); NEUTROPHILS # (AUTO) 5.9 (2.1-6.9); NEUTROPHILS % 70.8 % (38.7-80.0); PLATELET COUNT 164 x10e3/uL (140-360); RED BLOOD COUNT 4.54 x10e6/uL (3.6-5.1); RED CELL DISTRIBUTION WIDTH 14.7 % (11.7-14.4)
[~2019-05-12] MED LIST changes: +FENTANYL CITRATE/PF 100MCG/2 ML INJ ONE; +GLUCAGON FOR INJ 1 MG VIAL ONE; +HYOSCYAMINE 0.125 MG TAB ONE; +MIDAZOLAM HCL 2 MG/2 ML VIAL ONE
[2019-05-12 14:16] VITALS: BP 149/82
--- NOTE | 2019-05-12 19:49 | Operative Report ---
DATE OF PROCEDURE: 05/12/2019 SURGEON: Avtar Grace MD PROCEDURES: EGD with esophageal dilatation and biopsies and a colonoscopy with polypectomy. INDICATIONS FOR EGD: Dysphagia to solids. INDICATIONS FOR COLONOSCOPY: Surveillance colonoscopy, personal history of colon polyps, suboptimal prep on last colonoscopy. MEDICATIONS: The patient was done under MAC, please see anesthesiologist's note. PROCEDURE IN DETAIL: With the patient in left lateral decubitus position, a flexible fiberoptic Olympus gastroscope was introduced into the esophagus under direct visualization without any difficulty. There was a minute nodule noted just below the upper esophageal sphincter and that was biopsied. There was some patchy erythema noted in distal esophagus. A mild stricture was noted at the GE junction that was dilated to size 52-Maldiv[place] Morales. The scope was then advanced with ease into the stomach traversing a small sliding hiatal hernia. Mucosa overlying the antrum and the body revealed some patchy areas of erythema. The pylorus was of normal contour and shape, it was intubated with ease and the scope was advanced all the way to the second portion of the duodenum. The scope was then withdrawn slowly, mucosa overlying the proximal second portion and duodenal bulb appeared to be within normal limits. The scope was then withdrawn back into the stomach and retroflexed, and mucosa overlying the fundus and the cardia appeared to be within normal limits. The scope was then straightened out, it was subsequently withdrawn, and the patient tolerated the procedure well. IMPRESSION: 1. Esophageal stricture, GE junction, mild, dilated to size 52-Mal[place] Morales. 2. Small sliding hiatal hernia. 3. Gastritis, mild. PLAN: Continue current therapy. If dysphagia recurs, we will get a general surgical opinion regarding hiatal hernia repair. The patient was then turned around and after adequate lubrication of the anal canal, a flexible fiberoptic Olympus colonoscope was inserted into the rectum with ease and advanced all the way with some difficulty to the cecum. Scattered [id number] amount of retained fecal material was noted in the colon and the cecum was partially visualized due to the presence of large amount of retained stool. The scope was then withdrawn slowly, whatever was visualized the mucosa overlying the ascending, transverse, and descending revealed some scattered diverticular disease. Two minute polyps were hot biopsied from the sigmoid colon. The rectum appeared to be within normal limits. The scope was then retroflexed into the distal rectum and small internal hemorrhoids were noted, none of which was actively bleeding. The scope was then straightened out, it was subsequently withdrawn, and the patient tolerated the procedure well. IMPRESSION: 1. Suboptimal to poor prep. 2. Diverticulosis. 3. Sigmoid colon polyps x2, hot biopsied. 4. Internal hemorrhoids, none actively bleeding. PLAN: Follow up histology. Discussed case with the patient's sister. The patient will probably need a 2-day prep to meticulously cleanse the colon for an optimal visualization. Avtar Grace MD [facility] [place]/MODL /[id number] cc: Wilver Subramanian III, MD
== END | disposition home or self-care (01) ==
LOC: OR 11:20
PROVIDERS: ATTEND Internal Medicine Gastroenterology
DX: K22.2 Esophageal obstruction (principal); Z09 Encounter for follow-up examination after completed treatment for conditions other than malignant neoplasm; R13.10 Dysphagia, unspecified; K29.50 Unspecified chronic gastritis without bleeding; K44.9 Diaphragmatic hernia without obstruction or gangrene; K63.5 Polyp of colon; D12.5 Benign neoplasm of sigmoid colon; K57.30 Diverticulosis of large intestine without perforation or abscess without bleeding; K64.8 Other hemorrhoids; Z01.810 Encounter for preprocedural cardiovascular examination; Z01.812 Encounter for preprocedural laboratory examination; E11.9 Type 2 diabetes mellitus without complications; Z79.4 Long term (current) use of insulin; Z79.84 Long term (current) use of oral hypoglycemic drugs; E03.9 Hypothyroidism, unspecified; F17.210 Nicotine dependence, cigarettes, uncomplicated; J45.909 Unspecified asthma, uncomplicated; J43.9 Emphysema, unspecified; I10 Essential (primary) hypertension; K75.81 Nonalcoholic steatohepatitis (NASH); K21.0 Gastro-esophageal reflux disease with esophagitis
CPT/HCPCS: 36415 ×2; 43239; 43450; 45380; 82948; 85025; 88305; 93005; J1610; J2250; J3010; 45378; 45384; 45385

== ENCOUNTER → 2019-08-30 | Outpatient (CLI) | payer MEDICARE, OTHER ==
[~2019-08-30] MED LIST changes: -FENTANYL CITRATE/PF 100MCG/2 ML INJ ONE; -GLUCAGON FOR INJ 1 MG VIAL ONE; -HYOSCYAMINE 0.125 MG TAB ONE; -MIDAZOLAM HCL 2 MG/2 ML VIAL ONE; +TRULICITY1.5 MG/0.5 SQ
--- NOTE | 2019-08-30 14:54 | Diagnostic Imaging Report ---
EXAM: BONE MINERAL DENSITY HISTORY: Screening COMPARISON: None DISCUSSION: Evaluation of the left hip and lumbar spine was performed utilizing DEXA Hologic bone densitometer. The study is technically adequate. The patient's fracture risk is compared to an age-matched control. The patient denies prior surgery/fracture of the spine, hips or forearm. Left hip femoral neck bone mineral density: 0.708 g/cm2, T-score is -1.4, Z-score is 0.6. Left hip total bone mineral density: 0.956 g/cm2, T-score is 0, Z-score is 1.7. Lumbar spine total bone mineral density: 0.918 gm/cm2, T-score is -1.2, Z-score is 1.2. Impression: Bone mineralization by WHO Classification is osteopenia, the fracture risk is increased. The 10 year risk of a major osteoporotic fracture is calculated as 5.2%. Signed by: Dawood Antonio MD on 08/30/2019 2:52 PM
== END ==
LOC: MAMMO 08:44
PROVIDERS: ATTEND Student in an Organized Health Care Education/Training Program
DX: Z12.31 Encounter for screening mammogram for malignant neoplasm of breast (principal); Z13.820 Encounter for screening for osteoporosis
CPT/HCPCS: 77067; 77080

== ENCOUNTER → 2019-12-09 | Outpatient (CLI) | payer MEDICARE, OTHER ==
--- NOTE | 2019-12-09 10:26 | Diagnostic Imaging Report ---
EXAM: Right upper quadrant abdominal ultrasound INDICATION: Right upper quadrant pain COMPARISON: Abdominal ultrasound 05/10/2019 TECHNIQUE: Transverse and longitudinal images of the right upper quadrant abdomen were obtained FINDINGS: Liver: Size: 15.4 cm in the right midclavicular line, normal Appearance: Increased echogenicity, smooth contour Mass: No focal masses Gallbladder: No gallbladder distension, pericholecystic fluid, wall thickening, stone, or reported sonographic Silvestre's sign. Gallbladder wall measures 3 mm. Bile Ducts: Intrahepatic Ducts: No dilatation Extrahepatic Ducts: Common bile duct measures 3 mm Pancreas: Visualized portions of the pancreatic head, neck and proximal body are normal. Kidney: The right kidney measures 9.6 cm without evidence of hydronephrosis or stone. Vessels: Aorta: Visualized portions are normal Inferior Vena Cava: Visualized portions are normal Main Portal Vein: 1.1 cm, normal size with hepatopetal flow. Free Fluid: No ascites or pleural effusion IMPRESSION: Hepatic steatosis. No cholelithiasis or sonographic evidence of cholecystitis. Signed by: Lisandro Zepeda MD on 12/09/2019 10:23 AM
--- NOTE | 2019-12-09 16:41 | Diagnostic Imaging Report ---
Hepatobiliary Scan with Gallbladder Ejection Fraction Clinical information: RUQ pain Report: Following intravenous administration of 6.5 millicuries of Tc-99m mebrofenin, dynamic images of the abdomen in the anterior projection were obtained through 30 minutes. Sincalide (CCK analog) 2.2 micrograms was administered intravenously over 30 minutes with additional imaging for determination of gallbladder ejection fraction. Perfusion to the liver is normal. Extraction of tracer from the blood pool by the liver parenchyma is normal. Tracer is seen promptly within the biliary tract. The gallbladder begins to fill by 10 minutes post-injection of tracer and fills adequately. Tracer is seen in the small bowel during the sincalide infusion. The gallbladder ejection fraction with administration of sincalide is 78% (normal greater than 40%). Impression: 1. Filling of the gallbladder excludes the diagnosis of acute cystic duct obstruction/acute cholecystitis. 2. Normal gallbladder ejection fraction of 78% does not support the clinical diagnosis of chronic cholecystitis/gallbladder dyskinesia. Signed by: Dr. Sigrid Clarke M.D. on 12/09/2019 4:37 PM
== END ==
LOC: US 08:31
PROVIDERS: ATTEND Internal Medicine Gastroenterology
DX: R10.11 Right upper quadrant pain (principal)
CPT/HCPCS: 76705; 78227; A9537

== ENCOUNTER → 2020-02-08 | Outpatient (CLI) | payer MEDICARE, OTHER ==
--- NOTE | 2020-02-08 10:08 | Diagnostic Imaging Report ---
EXAM: US THYROID DATE: 02/08/2020 9:10 AM INDICATION: Hypothyroidism COMPARISON: None FINDINGS: The right thyroid lobe measures 3.5 x 1.9 x 1.5 cm. The is best measures 4 mm in thickness. The left thyroid lobe measures 3.6 x 1.6 x 1.7 cm. The thyroid parenchyma is diffusely heterogeneous. There is a hyperechoic solid nodule identified within the mid right thyroid lobe measuring 0.8 x 0.8 x 0.8 cm. Thyroid vascularity is diffusely increased. IMPRESSION: Heterogeneous thyroid parenchyma with diffusely increased vascularity which is nonspecific but can be seen in the setting of thyroiditis. Single subcentimeter nodule identified within the right thyroid lobe. Signed by: Dr. Ted Pollard MD on 02/08/2020 10:04 AM
== END ==
LOC: US 08:31
PROVIDERS: ATTEND Internal Medicine
DX: E03.9 Hypothyroidism, unspecified (principal)
CPT/HCPCS: 76536

== ENCOUNTER 2020-08-06 16:09 | Emergency (ER) | payer MEDICARE, OTHER ==
[~2020-08-06] VITALS: Ht 160 cm; Wt 111.1 kg
[2020-08-06] MEDS ORDERED: ESCITALOPRAM OX10 MG (18:46)
[2020-08-06] MEDS ORDERED: DULOXETINE HCL30 MG (18:46)
[2020-08-06] MEDS ORDERED: HUMALOG KW200 UNIT/1 (18:46)
[2020-08-06] MEDS ORDERED: JANUVIA50 MG (18:46)
[2020-08-06] MEDS ORDERED: TOLTERODINE TART4 MG (18:46)
[2020-08-06] MEDS ORDERED: METOPROLOL SUCC25 MG (18:46)
[2020-08-06] MEDS ORDERED: TELMISARTAN80 MG (18:46)
[2020-08-06] MEDS ORDERED: OMEPRAZOLE40 MG (18:46)
[2020-08-06] MEDS ORDERED: KETOROLAC TROMETHAMINE 30 MG/ML VIAL IV STA (20:09)
[2020-08-06] MEDS ORDERED: SODIUM CHLORIDE FLUSH 10 ML SYR INJ PRN (20:15)
[2020-08-06] MEDS ORDERED: CYCLOBENZAPRINE HCL 10 MG TAB PO ONE (20:15)
[2020-08-06 20:52] VITALS: BP 142/86
[2020-08-06] MEDS ORDERED: PROAIR HFA INH8.5 GM PO (20:58)
[2020-08-06] MEDS ORDERED: CYCLOBENZAPRINE5 MG PO (20:58)
[2020-08-06] MEDS ORDERED: PREDNISONE20 MG PO (20:58)
[2020-08-06] MEDS ORDERED: BROMFED DM COU118 ML PO (20:58)
[2020-08-06] MEDS ORDERED: AZITHROMYCIN500 MG PO (20:58)
[2020-08-06] MEDS ORDERED: KETOROLAC TROMETHAMINE 60 MG/2 ML VIAL IM ONE (21:00)
[2020-08-06] MEDS ORDERED: KETOROLAC TROMETHAMINE 60 MG/2 ML VIAL ONE (21:09)
[2020-08-06] MEDS ORDERED: CYCLOBENZAPRINE HCL 10 MG TAB ONE (21:09)
== END 2020-08-06 21:07 | disposition home or self-care (01) ==
LOC: FSED 17:09
DX: J20.9 Acute bronchitis, unspecified (principal); S29.011A Strain of muscle and tendon of front wall of thorax, initial encounter; J45.909 Unspecified asthma, uncomplicated; R94.31 Abnormal electrocardiogram [ECG] [EKG]
CPT/HCPCS: 71046; 93005; 99284; J1885

== ENCOUNTER → 2020-09-06 | Day surgery (SDC) | payer MEDICARE ==
[2020-09-04 11:34] LABS: BASOPHILS % 0.5 % (0.0-1.0); EOSINOPHILS # (AUTO) 0.3 (0.0-0.4); EOSINOPHILS % 3.2 % (0.0-6.0); HEMATOCRIT 41.7 % (34.2-44.1); HEMOGLOBIN 13.1 g/dL (12.0-16.0); LYMPHOCYTES # (AUTO) 1.2 (1.0-3.2); LYMPHOCYTES % 14.1 % (18.0-39.1); MEAN CORPUSCULAR HEMOGLOBIN 26.7 pg (28-32); MEAN CORPUSCULAR HGB CONC 31.4 g/dL (31-35); MEAN CORPUSCULAR VOLUME 85.1 fL (81-99); MONOCYTES # (AUTO) 0.7 (0.2-0.8); MONOCYTES % 7.9 % (4.4-11.3); NEUTROPHILS # (AUTO) 6.2 (2.1-6.9); NEUTROPHILS % 73.8 % (38.7-80.0); PLATELET COUNT 194 x10e3/uL (140-360); RED CELL DISTRIBUTION WIDTH 14.6 % (11.7-14.4)
[~2020-09-06] MED LIST changes: +AZITHROMYCIN500 MG PO; +BROMFED DM COU118 ML PO; +DULOXETINE HCL30 MG PO; +ESCITALOPRAM OX10 MG; +EUTHYROX25 MCG PO; +HUMALOG KW200 UNIT/1; +HYDRALAZINE HCL10 MG PO; +LIDOCAINE HCL 2% LOCAL INJ 5 ML SDV VIAL INJ ONE; +METOPROLOL SUCC25 MG; +OMEPRAZOLE40 MG; +PREDNISONE20 MG PO; +PROAIR HFA INH8.5 GM PO; +PROPOFOL IV EMULSION 10 MG/ML 20 ML VIAL ONE; +TELMISARTAN80 MG PO; +TOLTERODINE TART4 MG
[2020-09-06 09:03] VITALS: BP 126/66
[2020-09-06 10:28] LABS: ALBUMIN 3.4 g/dL (3.5-5.0); CALCIUM 9.2 mg/dL (8.4-10.2); CREATININE, SERUM 0.97 mg/dL (0.57-1.11)
== END | disposition home or self-care (01) ==
LOC: ENDO 05:40
PROVIDERS: ATTEND Internal Medicine Gastroenterology
DX: K29.70 Gastritis, unspecified, without bleeding (principal); K31.7 Polyp of stomach and duodenum; I85.00 Esophageal varices without bleeding; K31.89 Other diseases of stomach and duodenum; K20.90 Esophagitis, unspecified without bleeding; K21.9 Gastro-esophageal reflux disease without esophagitis; K44.9 Diaphragmatic hernia without obstruction or gangrene; Z86.010 Personal history of colon polyps; K76.0 Fatty (change of) liver, not elsewhere classified; G47.33 Obstructive sleep apnea (adult) (pediatric); E11.9 Type 2 diabetes mellitus without complications; G62.9 Polyneuropathy, unspecified; E03.9 Hypothyroidism, unspecified; I10 Essential (primary) hypertension; H91.90 Unspecified hearing loss, unspecified ear; F41.9 Anxiety disorder, unspecified; Z88.1 Allergy status to other antibiotic agents; Z01.812 Encounter for preprocedural laboratory examination; Z20.822 Contact with and (suspected) exposure to COVID-19; Z79.4 Long term (current) use of insulin; Z68.41 Body mass index [BMI] 40.0-44.9, adult
CPT/HCPCS: 36415 ×2; 43239; 43450; 80053; 82948; 85025; J2001; J2704; U0002

== ENCOUNTER 2020-09-17 11:06 | Emergency (ER) | payer MEDICARE ==
[~2020-09-17] VITALS: Ht 157.5 cm; Wt 111.6 kg
[~2020-09-17 11:06] MED LIST changes: -LIDOCAINE HCL 2% LOCAL INJ 5 ML SDV VIAL INJ ONE; -PROPOFOL IV EMULSION 10 MG/ML 20 ML VIAL ONE
[2020-09-17] MEDS ORDERED: HYDRALAZINE HCL25 MG PO (11:48)
[2020-09-17] MEDS ORDERED: UNITHROID50 MCG (11:48)
[2020-09-17] MEDS ORDERED: OMEGA-31000 MG PO (11:48)
[2020-09-17] MEDS ORDERED: LOSARTAN-HCTZ1 EACH (11:48)
[2020-09-17] MEDS ORDERED: FAMOTIDINE40 MG (11:48)
[2020-09-17] MEDS ORDERED: VITAMIN D250 MC1 (11:48)
[2020-09-17] MEDS ORDERED: KETOROLAC TROMETHAMINE 30 MG/ML VIAL IV STA (12:27)
[2020-09-17] MEDS ORDERED: FAMOTIDINE 20 MG/2 ML VIAL IV STA (12:27)
[2020-09-17] MEDS ORDERED: SODIUM CHLORIDE 0.9% 500ML 500 ML IV ONE (12:30)
[2020-09-17] MEDS ORDERED: ONDANSETRON HCL INJ 2MG/ML 2ML 2 MG/ML VIAL IV STA (12:36)
[2020-09-17] MEDS ORDERED: IOPAMIDOL 370 MG/ML 200 ML INFUS..BTL INJ ONE (12:43)
[2020-09-17] MEDS ORDERED: SODIUM CHLORIDE 0.9% 50ML 50 ML ONE (12:43)
[2020-09-17] MEDS ORDERED: ONDANSETRON HCL INJ 2MG/ML 2ML 2 MG/ML VIAL ONE (12:58)
[2020-09-17] MEDS ORDERED: KETOROLAC TROMETHAMINE 30 MG/ML VIAL ONE (12:58)
[2020-09-17] MEDS ORDERED: FAMOTIDINE 20 MG/2 ML VIAL IV ONE (12:58)
[2020-09-17] MEDS ORDERED: SODIUM CHLORIDE 0.9% 500ML 500 ML ONE (12:58)
[2020-09-17 14:25] VITALS: BP 153/91
[2020-09-17] MEDS ORDERED: DICYCLOMINE HCL20 MG PO (14:45)
== END 2020-09-17 14:55 | disposition home or self-care (01) ==
LOC: FSED 11:35
DX: R10.11 Right upper quadrant pain (principal); K21.9 Gastro-esophageal reflux disease without esophagitis; K58.9 Irritable bowel syndrome, unspecified; I10 Essential (primary) hypertension; E11.9 Type 2 diabetes mellitus without complications; K76.0 Fatty (change of) liver, not elsewhere classified
CPT/HCPCS: 71046; 74177; 80048; 80076; 81003; 82553; 84484; 85025; 96374; 96375; 99284; J1885; J2405; J7040; Q9967

== ENCOUNTER → 2020-09-21 | Outpatient (CLI) | payer MEDICARE, OTHER ==
[~2020-09-21] MED LIST changes: +DICYCLOMINE HCL20 MG PO; +FAMOTIDINE40 MG; +HYDRALAZINE HCL25 MG PO; +LOSARTAN-HCTZ1 EACH; +OMEGA-31000 MG PO; +UNITHROID50 MCG; +VITAMIN D250 MC1
== END ==
LOC: US 11:32
PROVIDERS: ATTEND Internal Medicine Gastroenterology
DX: R10.10 Upper abdominal pain, unspecified (principal)
CPT/HCPCS: 76705; 78227; A9537

== ENCOUNTER → 2020-09-28 | Outpatient (CLI) | payer MEDICARE, OTHER | LOC: MRI 09:29 | PROVIDERS: ATTEND Internal Medicine Gastroenterology | DX: R10.11 Right upper quadrant pain (principal); M54.5 Low back pain | CPT/HCPCS: 72148 ==

== ENCOUNTER → 2020-10-12 | Outpatient (CLI) | payer MEDICARE, OTHER ==
[~2020-10-12] MED LIST changes: +IOPAMIDOL 370 MG/ML 200 ML INFUS..BTL INJ ONE; +SODIUM CHLORIDE 0.9% 50ML 50 ML ONE
[2020-10-12 10:04] LABS: CREATININE, SERUM 0.94 mg/dL (0.57-1.11)
== END ==
LOC: CT 09:20
PROVIDERS: ATTEND Internal Medicine Gastroenterology
DX: R10.11 Right upper quadrant pain (principal); M54.9 Dorsalgia, unspecified
CPT/HCPCS: 36415; 74160; 82565; 84520; Q9967

== ENCOUNTER → 2021-04-29 | Outpatient (CLI) | payer MEDICARE, OTHER ==
[2021-04-29 09:45] LABS: CREATININE, SERUM 0.91 mg/dL (0.57-1.11)
== END ==
LOC: CT 08:21
PROVIDERS: ATTEND Internal Medicine Gastroenterology
DX: R10.11 Right upper quadrant pain (principal); K29.70 Gastritis, unspecified, without bleeding; K22.70 Barrett's esophagus without dysplasia; E27.8 Other specified disorders of adrenal gland; Z86.010 Personal history of colon polyps
CPT/HCPCS: 36415; 74170; 82565; 84520; Q9967

== ENCOUNTER 2021-10-22 08:46 | Emergency (ER) | payer MEDICARE, OTHER ==
[~2021-10-22] VITALS: Ht 160 cm; Wt 107.5 kg
[~2021-10-22 08:46] MED LIST changes: -IOPAMIDOL 370 MG/ML 200 ML INFUS..BTL INJ ONE; -SODIUM CHLORIDE 0.9% 50ML 50 ML ONE
[2021-10-22 12:00] VITALS: BP 148/72
== END 2021-10-22 12:02 | disposition home or self-care (01) ==
LOC: FSED 08:52
DX: T38.3X1A Poisoning by insulin and oral hypoglycemic [antidiabetic] drugs, accidental (unintentional), initial encounter (principal); I10 Essential (primary) hypertension; E11.65 Type 2 diabetes mellitus with hyperglycemia; E78.5 Hyperlipidemia, unspecified; I25.10 Atherosclerotic heart disease of native coronary artery without angina pectoris; E03.9 Hypothyroidism, unspecified; K21.9 Gastro-esophageal reflux disease without esophagitis; M79.7 Fibromyalgia; G47.30 Sleep apnea, unspecified; E66.01 Morbid (severe) obesity due to excess calories; Z85.3 Personal history of malignant neoplasm of breast
CPT/HCPCS: 36415; 82948; 99282